=== PATIENT | female | born 1990 | race Caucasian/White ===

== ENCOUNTER 2017-01-29 20:52 | Emergency (ER) | payer OTHER ==
[~2017-01-29] VITALS: Ht 160 cm; Wt 68.0 kg
[2017-01-29] MEDS ORDERED: LIDOCAINE HCL BUFFERED 1% 20 ML VIAL INJ ONE (21:15)
[2017-01-29] MEDS ORDERED: POVIDONE-IODINE 10% 15 ML SOLUTION UD TP ONE (21:15)
[2017-01-29] MEDS ORDERED: IBUPROFEN 800 MG TABLET PO ONE (21:15)
[2017-01-29] MEDS ORDERED: BACITRACIN 0.9 GM PACKET OINTMENT TP ONE (22:15)
[2017-01-29] MEDS ORDERED: PERTUSS(ACELL),DIPH,TET VAC/PF 0.5 ML VIAL IM ONE (22:15)
[2017-01-29 22:16] VITALS: BP 135/80
== END 2017-01-29 22:17 | disposition home or self-care (01) ==
LOC: EMS 20:54
DX: S61.412A Laceration without foreign body of left hand, initial encounter (principal); W45.8XXA Other foreign body or object entering through skin, initial encounter; Y93.89 Activity, other specified; Y92.89 Other specified places as the place of occurrence of the external cause; Y99.8 Other external cause status
CPT/HCPCS: 12001; 73130; 90715; 99284; J3490

== ENCOUNTER 2017-02-05 09:34 | Emergency (ER) | payer OTHER ==
[~2017-02-05] VITALS: Ht 160 cm; Wt 72.7 kg
[2017-02-05] MEDS ORDERED: ABX (09:37)
[2017-02-05 10:25] VITALS: BP 114/67
== END 2017-02-05 11:21 | disposition home or self-care (01) ==
LOC: EMS 09:37
DX: Z48.02 Encounter for removal of sutures (principal)
CPT/HCPCS: 99281

== ENCOUNTER 2017-03-28 12:42 | Emergency (ER) | payer OTHER ==
[~2017-03-28] VITALS: Ht 160 cm; Wt 72.7 kg
[~2017-03-28 12:42] MED LIST: ABX
[2017-03-28] MEDS ORDERED: KETOROLAC TROMETHAMINE 30 MG/ML VIAL IM ONE (13:45)
[2017-03-28 14:42] LABS: GLUCOSE, URINE (UA) NEGATIVE (NEGATIVE); KETONES,URINE NEGATIVE (NEGATIVE); LEUKOCYTE ESTERASE ,URINE NEGATIVE (NEGATIVE); OCCULT BLOOD,URINE SMALL (NEGATIVE); PH,URINE 5.5 (5.0-8.0); PROTEIN,URINE NEGATIVE (NEGATIVE)
[2017-03-28 14:47] LABS: ADD UA MICROSCOPIC YES; APPEARANCE,URINE HAZY (CLEAR)
[2017-03-28 14:48] LABS: SQUAMOUS EPITHELIAL CELL,UR Moderate /LPF (None Seen); WBC,URINE None Seen /HPF (0-5)
[2017-03-28 15:30] VITALS: BP 124/72
== END 2017-03-28 15:45 | disposition home or self-care (01) ==
LOC: EMS 12:44
DX: M54.5 Low back pain (principal); S22.31XD Fracture of one rib, right side, subsequent encounter for fracture with routine healing; Z91.013 Allergy to seafood; Z91.018 Allergy to other foods; V29.9XXD Motorcycle rider (driver) (passenger) injured in unspecified traffic accident, subsequent encounter
CPT/HCPCS: 81001; 81025; 96372; 99283; J1885

== ENCOUNTER 2018-02-25 21:24 | Emergency (ER) | payer OTHER ==
[~2018-02-25] VITALS: Ht 160 cm; Wt 81.8 kg
[2018-02-25] MEDS ORDERED: PRENATAL VITAMIN PO (21:40)
[2018-02-25 22:46] VITALS: BP 112/65
== END 2018-02-25 22:46 | disposition home or self-care (01) ==
LOC: EMS 21:25
DX: O26.892 Other specified pregnancy related conditions, second trimester (principal); R21 Rash and other nonspecific skin eruption; Z3A.20 20 weeks gestation of pregnancy; Z91.018 Allergy to other foods
CPT/HCPCS: 99282

== ENCOUNTER 2018-03-08 20:55 | Observation (INO) | payer OTHER ==
[~2018-03-08] VITALS: Ht 160 cm; Wt 89.1 kg
[~2018-03-08 20:55] MED LIST changes: -ABX; +PRENATAL VITAMIN PO
[2018-03-08 21:49] VITALS: BP 125/64
[2018-03-08 21:49] LABS: APPEARANCE,URINE CLOUDY (CLEAR); BILIRUBIN,URINE NEGATIVE (NEGATIVE); GLUCOSE, URINE (UA) NEGATIVE (NEGATIVE); KETONES,URINE NEGATIVE (NEGATIVE); LEUKOCYTE ESTERASE ,URINE MODERATE (NEGATIVE); NITRATE,URINE NEGATIVE (NEGATIVE); OCCULT BLOOD,URINE NEGATIVE (NEGATIVE); PROTEIN,URINE NEGATIVE (NEGATIVE)
[2018-03-08 21:59] LABS: BACTERIA,URINE Few /HPF (None Seen); RBC,URINE 0-2 /HPF (0-2); SQUAMOUS EPITHELIAL CELL,UR Few /LPF (None Seen)
== END 2018-03-09 00:25 | disposition home or self-care (01) ==
LOC: EMS 20:56 → INTOOBSV 21:17 → 4S 21:17
PROVIDERS: ADMIT Obstetrics & Gynecology; ATTEND Obstetrics & Gynecology
DX: O26.892 Other specified pregnancy related conditions, second trimester (principal); R10.30 Lower abdominal pain, unspecified; Z3A.21 21 weeks gestation of pregnancy
CPT/HCPCS: 59025; 76805; 80307 ×8; 81001; G0378 ×2

== ENCOUNTER 2018-06-09 15:15 | Observation (INO) | payer OTHER | END 2018-06-09 17:55 | disposition home or self-care (01) | LOC: 4S 15:15 | PROVIDERS: ADMIT Obstetrics & Gynecology; ATTEND Obstetrics & Gynecology | DX: O26.893 Other specified pregnancy related conditions, third trimester (principal); M54.5 Low back pain; Z3A.34 34 weeks gestation of pregnancy; W01.0XXA Fall on same level from slipping, tripping and stumbling without subsequent striking against object, initial encounter; Y93.89 Activity, other specified; Y92.89 Other specified places as the place of occurrence of the external cause; Y99.8 Other external cause status | CPT/HCPCS: 59025; 76805; 86850; 86900; 86901 ==

== ENCOUNTER 2018-06-13 12:50 | Observation (INO) | payer OTHER ==
[~2018-06-13] VITALS: Ht 160 cm; Wt 92.5 kg
[2018-06-13 13:44] VITALS: BP 109/61
== END 2018-06-13 14:05 | disposition home or self-care (01) ==
LOC: 4S 12:50
PROVIDERS: ADMIT Obstetrics & Gynecology; ATTEND Obstetrics & Gynecology
DX: O26.893 Other specified pregnancy related conditions, third trimester (principal); R10.30 Lower abdominal pain, unspecified; M54.5 Low back pain; Z3A.34 34 weeks gestation of pregnancy
CPT/HCPCS: 59025; G0378

== ENCOUNTER 2019-05-11 13:24 | Emergency (ER) | payer OTHER ==
[~2019-05-11] VITALS: Ht 160 cm; Wt 68.2 kg
[2019-05-11] MEDS ORDERED: KETOROLAC TROMETHAMINE 30 MG/ML VIAL IM ONE (14:45)
[2019-05-11] MEDS ORDERED: LIDOCAINE 5% TRANSDERMAL PATCH TD ONE (14:45)
[2019-05-11 16:57] VITALS: BP 124/72
== END 2019-05-11 17:04 | disposition home or self-care (01) ==
LOC: EMS 13:26
DX: S73.102A Unspecified sprain of left hip, initial encounter (principal); S29.012A Strain of muscle and tendon of back wall of thorax, initial encounter; S80.02XA Contusion of left knee, initial encounter; S93.402A Sprain of unspecified ligament of left ankle, initial encounter; Z91.013 Allergy to seafood; Z91.018 Allergy to other foods; V29.9XXA Motorcycle rider (driver) (passenger) injured in unspecified traffic accident, initial encounter; Y93.89 Activity, other specified; Y92.89 Other specified places as the place of occurrence of the external cause; Y99.8 Other external cause status
CPT/HCPCS: 29515; 73503; 73562; 73610; 81025; 96372; 99283; J1885

== ENCOUNTER 2023-12-22 00:13 | Emergency (ER) | payer OTHER ==
[~2023-12-22] VITALS: Ht 165.1 cm; Wt 86.0 kg
[2023-12-22] MEDS ORDERED: VALA500T PO (01:23)
[2023-12-22] MEDS ORDERED: CEPH-558 PO (01:23)
[2023-12-22] MEDS ORDERED: PRED-554 PO (01:23)
[2023-12-22] MEDS ORDERED: HYDR-4062 PO (01:23)
[2023-12-22] MEDS: PredniSONE 20 MG TABLET PO ONE (01:45)
[2023-12-22] MEDS: HYDROCODONE/ACETAMINOPHEN 5-325 MG TABLET PO ONE (01:46)
[2023-12-22] MEDS: ValACYclovir HCL 500 MG TABLET PO ONE (01:46)
[2023-12-22 02:02] VITALS: BP 119/68; PULSE 79; RESP 20; TEMP 98.3
== END 2023-12-22 02:17 | disposition home or self-care (01) ==
LOC: EMS 00:14
DX: B02.9 Zoster without complications (principal); Z91.013 Allergy to seafood; Z91.018 Allergy to other foods; Z79.899 Other long term (current) drug therapy
CPT/HCPCS: 99284; J7512

== ENCOUNTER 2024-01-03 10:50 | Emergency (ER) | payer MEDICAID ==
[~2024-01-03] VITALS: Ht 160 cm; Wt 75.0 kg
[~2024-01-03 10:50] MED LIST changes: +CEPH-558 PO; +HYDR-4062 PO; +PRED-554 PO; -PRENATAL VITAMIN PO; +VALA500T PO
[2024-01-03 10:53] VITALS: TEMP 98.4
[2024-01-03 11:25] LABS: BASOPHILS % (AUTO) 0.4 % (0.0-2.0); EOSINOPHILS % (AUTO) 3.7 % (1.0-6.0); HEMATOCRIT 34.1 % (36-46); LYMPHOCYTES # (AUTO) 1.1 K/uL (1.0-4.8); LYMPHOCYTES % (AUTO) 14.9 % (22.0-44.0); MEAN CORPUSCULAR HEMOGLOBIN 27.2 pg (26.0-34.0); MEAN CORPUSCULAR HGB CONC 32.4 G/dL (31.0-37.0); MEAN CORPUSCULAR VOLUME 84 fL (80-100); MONOCYTES # (AUTO) 0.3 K/uL (0.1-1.0); MONOCYTES % (AUTO) 3.9 % (2.0-9.0); NEUTROPHILS # (AUTO) 5.7 K/uL (1.8-7.7); NEUTROPHILS % (AUTO) 77.1 % (40.0-70.0); PLATELET COUNT (AUTO) 302 K/uL (150-450); RED BLOOD CELL COUNT(AUTO) 4.06 MIL/uL (4.00-5.20); RED CELL DISTRIBUTION WIDTH 15.9 % (11.5-14.5); WHITE BLOOD COUNT (AUTO) 7.4 K/uL (4.5-11.0)
[2024-01-03 11:40] LABS: ANION GAP 8 mmol/L (8-16); CALCIUM, TOTAL 8.9 mg/dL (8.8-10.5); CARBON DIOXIDE 25 mmol/L (22-29); CHLORIDE 103 mmol/L (98-107); CREATININE 0.61 mg/dL (0.60-1.30); GLOMERULAR FILTR. RATE CALC > 60 mL/min (>60); GLUCOSE,RANDOM 105 mg/dL (70-110); POTASSIUM 4.1 mmol/L (3.5-5.1); SODIUM SERUM 136 mmol/L (136-145); UREA NITROGEN, BLOOD 10 mg/dL (7-18)
[2024-01-03 11:50] LABS: ALANINE AMINOTRANSFERASE 23 U/L (12-78); ALBUMIN 3.5 g/dL (3.4-5.0); ALKALINE PHOSPHATASE 76 U/L (46-116); ASPARTATE AMINOTRANSFERASE 16 U/L (15-37); BILIRUBIN,TOTAL 0.2 mg/dL (0.1-1.0); HCG,QUANTITATIVE 1 mIU/mL (0-6); LIPASE 30 U/L (16-77); TOTAL PROTEIN, SERUM 7.9 g/dL (6.4-8.2)
[2024-01-03 13:00] LABS: APPEARANCE,URINE CLEAR (CLEAR); BILIRUBIN,URINE NEGATIVE (NEGATIVE); COLOR,URINE COLORLESS (YELLOW); GLUCOSE, URINE (UA) NEGATIVE (NEGATIVE); KETONES,URINE NEGATIVE (NEGATIVE); LEUKOCYTE ESTERASE ,URINE NEGATIVE (NEGATIVE); NITRATE,URINE NEGATIVE (NEGATIVE); OCCULT BLOOD,URINE NEGATIVE (NEGATIVE); PH,URINE 5.5 (5.0-8.0); PROTEIN,URINE NEGATIVE (NEGATIVE); SPECIFIC GRAVITIY, URINE 1.015 (1.003-1.030); UROBILINOGEN,URINE <=1.0 mg/dL (<=1.0)
[2024-01-03] MEDS ORDERED: ACETAMINOPHEN 500 MG TABLET PO ONE (13:00)
[2024-01-03] MEDS ORDERED: KETOROLAC TROMETHAMINE 30 MG/ML VIAL IVP ONE (13:00)
[2024-01-03] MEDS ORDERED: FAMOTIDINE 20 MG/2 ML VIAL IVP ONE (13:15)
[2024-01-03] MEDS ORDERED: MAG HYDROX/ALUMINUM HYD/SIMETH 30 ML SUSPENSION UDCUP PO ONE (13:15)
[2024-01-03] MEDS ORDERED: IOHEXOL 350 MG/ML 100 ML VIAL ONE (13:54)
[2024-01-03] MEDS ORDERED: SODIUM CHLORIDE 0.9% 100 ML ONE (13:54)
[2024-01-03] MEDS ORDERED: ONDA-104 PO (13:57)
[2024-01-03] MEDS ORDERED: ACET-3385 PO (13:57)
[2024-01-03] MEDS ORDERED: IBUP-1492 PO (13:57)
[2024-01-03 14:04] VITALS: BP 116/70; PULSE 71; RESP 16
== END 2024-01-03 14:06 | disposition home or self-care (01) ==
LOC: EMS 10:50
DX: K80.20 Calculus of gallbladder without cholecystitis without obstruction (principal); Z91.013 Allergy to seafood
CPT/HCPCS: 99284; 76705; 80053; 81003; 83690; 84702; 85025; 36415; Q9967; J7050

== ENCOUNTER 2024-03-17 17:13 | Emergency (ER) | payer MEDICAID ==
[~2024-03-17] VITALS: Ht 170.2 cm; Wt 81.8 kg
[~2024-03-17 17:13] MED LIST changes: +ACET-3385 PO; -CEPH-558 PO; -HYDR-4062 PO; +IBUP-1492 PO; +ONDA-104 PO; -PRED-554 PO; -VALA500T PO
[2024-03-17 17:27] VITALS: TEMP 98.1
[2024-03-17] MEDS: ACETAMINOPHEN 500 MG TABLET PO ONE (17:45)
[2024-03-17] MEDS ORDERED: CABO6SUS IM (17:55)
[2024-03-17] MEDS ORDERED: ERGO500093 PO (17:55)
[2024-03-17 18:03] VITALS: BP 116/64; PULSE 70; RESP 14
== END 2024-03-17 18:05 | disposition home or self-care (01) ==
LOC: EMS 17:13
DX: M65.9 Synovitis and tenosynovitis, unspecified (principal); Z91.013 Allergy to seafood; Z91.018 Allergy to other foods
CPT/HCPCS: 99283

== ENCOUNTER 2025-01-29 23:58 | Emergency (ER) | payer MEDICAID ==
[~2025-01-29] VITALS: Ht 160 cm; Wt 105.1 kg
[~2025-01-29 23:58] MED LIST changes: +CABO6SUS IM; +ERGO500093 PO; -IBUP-1492 PO; -ONDA-104 PO
[2025-01-30 00:07] VITALS: TEMP 98
[2025-01-30 00:49] LABS: BASOPHILS % (AUTO) 0.2 % (0.0-2.0); EOSINOPHILS % (AUTO) 1.6 % (1.0-6.0); HEMATOCRIT 35.1 % (36-46); HEMOGLOBIN 11.9 g/dL (12.0-16.0); LYMPHOCYTES # (AUTO) 0.8 K/uL (1.0-4.8); LYMPHOCYTES % (AUTO) 11.9 % (22.0-44.0); MEAN CORPUSCULAR HEMOGLOBIN 29.4 pg (26.0-34.0); MEAN CORPUSCULAR HGB CONC 33.9 G/dL (31.0-37.0); MEAN CORPUSCULAR VOLUME 87 fL (80-100); MONOCYTES # (AUTO) 0.5 K/uL (0.1-1.0); MONOCYTES % (AUTO) 7.8 % (2.0-9.0); NEUTROPHILS # (AUTO) 5.1 K/uL (1.8-7.7); NEUTROPHILS % (AUTO) 78.5 % (40.0-70.0); PLATELET COUNT (AUTO) 252 K/uL (150-450); RED BLOOD CELL COUNT(AUTO) 4.04 MIL/uL (4.00-5.20); RED CELL DISTRIBUTION WIDTH 14.5 % (11.5-14.5); WHITE BLOOD COUNT (AUTO) 6.4 K/uL (4.5-11.0)
[2025-01-30] MEDS: ACETAMINOPHEN 500 MG TABLET PO ONE (00:56)
[2025-01-30] MEDS: LOPERAMIDE HCL 2 MG CAPSULE PO ONE (00:56)
[2025-01-30] MEDS: FAMOTIDINE 20 MG/2 ML VIAL IVP ONE (00:56)
[2025-01-30] MEDS: SODIUM CHLORIDE 0.9% 1,000 ML IV ONE (00:56)
[2025-01-30 01:00] LABS: ANION GAP 9 mmol/L (8-16); CALCIUM, TOTAL 8.5 mg/dL (8.8-10.5); CARBON DIOXIDE 23 mmol/L (22-29); CHLORIDE 102 mmol/L (98-107); CREATININE 0.62 mg/dL (0.60-1.30); GLOMERULAR FILTR. RATE CALC > 60 mL/min (>60); GLUCOSE,RANDOM 95 mg/dL (70-110); POTASSIUM 3.5 mmol/L (3.5-5.1); SODIUM SERUM 134 mmol/L (136-145); UREA NITROGEN, BLOOD 7 mg/dL (7-18)
[2025-01-30] MEDS: ONDANSETRON HCL 4 MG/2 ML VIAL IVP ONE (01:10)
[2025-01-30 01:11] LABS: ALBUMIN 2.9 g/dL (3.4-5.0); BILIRUBIN,DIRECT 0.1 mg/dL (0.00-0.20); BILIRUBIN,TOTAL 0.2 mg/dL (0.1-1.0); MAGNESIUM 1.9 mg/dL (1.80-2.40); TOTAL PROTEIN, SERUM 7.2 g/dL (6.4-8.2)
[2025-01-30 01:49] LABS: APPEARANCE,URINE CLEAR (CLEAR); BILIRUBIN,URINE NEGATIVE (NEGATIVE); COLOR,URINE LIGHT YELLOW (YELLOW); GLUCOSE, URINE (UA) NEGATIVE (NEGATIVE); LEUKOCYTE ESTERASE ,URINE NEGATIVE (NEGATIVE); NITRATE,URINE NEGATIVE (NEGATIVE); OCCULT BLOOD,URINE NEGATIVE (NEGATIVE); PROTEIN,URINE TRACE mg/dL (NEGATIVE); SPECIFIC GRAVITIY, URINE 1.021 (1.003-1.030); UROBILINOGEN,URINE <=1.0 mg/dL (<=1.0)
[2025-01-30 01:51] VITALS: BP 97/66; PULSE 71; RESP 20; O2SAT 100
[2025-01-30] MEDS ORDERED: DOXY1TAB3 PO (02:31)
== END 2025-01-30 03:06 | disposition home or self-care (01) ==
LOC: EMS 23:59
DX: O99.611 Diseases of the digestive system complicating pregnancy, first trimester (principal); A08.4 Viral intestinal infection, unspecified; R10.2 Pelvic and perineal pain; O21.9 Vomiting of pregnancy, unspecified; Z91.018 Allergy to other foods; Z3A.12 12 weeks gestation of pregnancy
CPT/HCPCS: 99284; 80048; 80076; 81003; 83690; 83735; 84702; 85025; 36415; 96374; 96361; 96375; J3490; J2405; J7030